=== PATIENT | female | born 1955 | race Caucasian/White ===

== ENCOUNTER 2016-06-14 17:05 | Emergency (ER) | payer MEDICARE, MEDICAID ==
[2016-06-14] MEDS ORDERED: POVIDONE IODINE 10 % 15 ML UD TOP ONE (18:02)
[2016-06-14] MEDS ORDERED: LIDOCAINE 1% 10 ML VIAL INJ ONE ×2 (18:03→18:22)
[2016-06-14] MEDS ORDERED: CHLORHEXIDINE GLUCONATE 4 % 15 ML UD TOP ONE (18:18)
[2016-06-14] MEDS ORDERED: NEOMYCIN-BACITRACIN-POLYMYXIN 0.9 GM UD TOP ONE (18:40)
--- NOTE | 2016-06-14 19:01 | ED.PDOC ---
History of Present Illness - General Chief Complaint: Laceration Stated Complaint: leg laceration Time Seen by Provider: 06/14/16 18:59 Source: patient Exam Limitations: no limitations - History of Present Illness Initial Comments: PT REPORTS SHE WAS USING HER WHEELCHAIR AND CAME TOO CLOSE TO THE BED AND CUT HER RIGHT LEG. Timing/Duration: just prior to arrival Severity: moderate Location: extremities Improving Factors: immobilization Worsening Factors: movement Allergies/Adverse Reactions: Allergies Codeine Allergy (Verified 06/14/16 17:13) Sulfa Drugs Allergy (Verified 06/14/16 17:13) states she thinks they have given sulfa drugs to her and she had no reaction TAPE Allergy (Uncoded 06/14/16 17:13) Home Medications: Ambulatory Orders Acetaminophen [Tylenol] 650 mg PO Q4-6H PRN 04/03/13 Aluminum & Magnesium Hydroxide [Maalox] 30 ml PO Q4-6H PRN 04/03/13 Bisacodyl Suppository 10Mg [Dulcolax Suppository 10mg] 10 mg [place] DAILY PRN Calcium Polycarbophil [Fibercon] 635 mg PO DAILY 04/03/13 Diphenhydramine HCl [Benadryl] 25 mg PO Q6H PRN 04/03/13 Docusate Sodium [Colace] 100 mg PO BID 04/03/13 Duloxetine HCl [Cymbalta] 60 mg PO BID 04/03/13 Magnesium Hydroxide [Milk Of Magnesia] 30 ml PO DAILY 04/03/13 Ondansetron Tab [Zofran Tab] 4 mg PO TID PRN 04/03/13 Pantoprazole Sodium 40 mg PO DAILY 04/03/13 Potassium Chloride Tab [K-Dur] 20 meq PO QID 04/03/13 Rosuvastatin Calcium [Crestor] 20 mg PO DAILY 04/03/13 Spironolactone [Aldactone] 25 mg PO BID 04/03/13 Ipratropium/Albuterol [Duoneb] 3 ml INH QID #0 vial 04/07/13 Polyethylene Glycol 3350 [Miralax] 17 gm PO BID #0 04/07/13 Albuterol Sulfate Nebs [Proventil Nebs] 2.5 mg INH Q6H PRN 10/20/13 Guaifenesin [Guaifenesin ER] 600 mg PO BID PRN 10/20/13 Insulin Detemir [Levemir Flexpen] 30 unit SC BID 10/20/13 Nystatin Powder 15 gm TOP BID 10/20/13 Bifidobacterium Infantis [Align] 4 mg PO QID #0 cap 10/23/13 Ferrous Gluconate [Fergon] 325 mg PO BIDFD #0 tab 10/23/13 HYDROcodone 7.5MG/APAP 325MG [[place] 7.5/325] 1 ea PO Q4H PRN #0 tab 10/23/13 fentaNYL PATCH 75 MCG/HR [Duragesic Patch 75 MCG/HR] 1 ea TD Q72H #0 patch 10/23 Ciprofloxacin HCl [Cipro] 250 mg PO BID #20 tab 02/04/14 Cefdinir 300 mg PO BID #42 cap 12/25/14 Furosemide [Lasix] 20 mg PO 0900,1200 #60 tab 12/25/14 Trazodone HCl 150 mg PO BEDTIME #30 tab 12/25/14 Loperamide HCl 2 mg PO PRN #20 cap 11/02/15 Nitrofurantoin Monohyd Macro [Nitrofurantoin Monohydrat] 100 mg PO BID #14 cap 11/02/15 Amoxicillin & Pot Clavulanate [Augmentin] 875 mg PO BID #20 tab 06/14/16 Review of Systems - Review of Systems Constitutional: Denies: chills, fever Musculoskeletal: Denies: joint pain, joint swelling, muscle pain Skin: States: see HPI. Denies: change in color, dryness Neurological: Denies: numbness, paresthesia Past Medical History (General) - Patient Medical History Hx Seizures: No Hx Stroke: No Hx Dementia: No Hx Asthma: No Hx of COPD: No Hx Cardiac Disorders: Yes Hx Congestive Heart Failure: No Hx Pacemaker: No Hx Hypertension: Yes Hx Thyroid Disease: No Hx Diabetes: Yes Hx Gastroesophageal Reflux: Yes Hx Renal Disease: No Hx Cancer: No Hx of HIV: No Hx Hepatitis C: No Hx MRSA: Yes MRSA Source:: Wound Surgical History: cholecystectomy - Vaccination History Hx Tetanus, Diphtheria Vaccination: No Hx Influenza Vaccination: Yes Hx Pneumococcal Vaccination: Yes - Social History Hx Tobacco Use: No Hx Alcohol Use: No Hx Substance Use: No Hx Substance Use Treatment: No Hx Depression: No Hx Physical Abuse: No Hx Emotional Abuse: No - Activities of Daily Living Custodial/Assisted Living (if applicable):: [facility] (if applicable):: None - Female History Patient is a Female of Child Bearing Age (10 -59 yrs old): No Patient : No Family Medical History - Family History Mother Family History: Unknown Living Status: Hx Family Asthma: No Hx Family Congestive Heart Failure: No - pt is not certain Hx Family Hypertension: Yes Hx Family Stroke: No Hx Cardiac Disease: Yes - [place] with bypass surgery Hx Family Diabetes: No Hx Family Cancer: No Physical Exam - Physical Exam General Appearance: No apparent distress, Obese Extremity: other - 14CM WISH BONE SHAPED LACERATION TO THE DISTAL LATERAL ASPECT OF THE RIGHT CALF, MODERATE TTP Neurologic: alert, normal mood/affect, oriented x 3 Skin Exam: warm/dry, normal color Skin Problem Location: lower extremities Procedures - Laceration/Wound Repair Right Lateral Distal Calf Wound Length (cm): 14 Wound's Depth, Shape: superficial, flap Wound Explored: no foreign body removed Irrigated w/ Saline (cc's): 250 Betadine Prep?: Yes Anesthesia: 1% Lidocaine Volume Anesthetic (cc's): 20 Suture Size/Type: 4:0, nylon Number of Sutures: 3 - SURGICAL HANSA USED Layer Closure?: No Sterile Dressing Applied?: Yes Departure - Departure Clinical Impression: Laceration Time of Disposition: 19:06 Disposition: Discharge to SNF Condition: Good Departure Forms: ED Discharge - Pt. Copy, Patient Portal Self Enrollment Instructions: DI for Laceration Repair Prescriptions: Amoxicillin & Pot Clavulanate [Augmentin] 875 mg PO BID #20 tab Home Medications: Ambulatory Orders Acetaminophen [Tylenol] 650 mg PO Q4-6H PRN 04/03/13 Aluminum & Magnesium Hydroxide [Maalox] 30 ml PO Q4-6H PRN 04/03/13 Bisacodyl Suppository 10Mg [Dulcolax Suppository 10mg] 10 mg [place] DAILY PRN Calcium Polycarbophil [Fibercon] 635 mg PO DAILY 04/03/13 Diphenhydramine HCl [Benadryl] 25 mg PO Q6H PRN 04/03/13 Docusate Sodium [Colace] 100 mg PO BID 04/03/13 Duloxetine HCl [Cymbalta] 60 mg PO BID 01/30/14 Magnesium Hydroxide [Milk Of Magnesia] 30 ml PO DAILY 04/03/13 Ondansetron Tab [Zofran Tab] 4 mg PO TID PRN 04/03/13 Pantoprazole Sodium 40 mg PO DAILY 04/03/13 Potassium Chloride Tab [K-Dur] 20 meq PO QID 04/03/13 Rosuvastatin Calcium [Crestor] 20 mg PO DAILY 04/03/13 Spironolactone [Aldactone] 25 mg PO BID 04/03/13 Ipratropium/Albuterol [Duoneb] 3 ml INH QID #0 vial 04/07/13 Polyethylene Glycol 3350 [Miralax] 17 gm PO BID #0 04/07/13 Albuterol Sulfate Nebs [Proventil Nebs] 2.5 mg INH Q6H PRN 10/20/13 Guaifenesin [Guaifenesin ER] 600 mg PO BID PRN 10/20/13 Insulin Detemir [Levemir Flexpen] 30 unit SC BID 10/20/13 Nystatin Powder 15 gm TOP BID 10/20/13 Bifidobacterium Infantis [Align] 4 mg PO QID #0 cap 10/23/13 Ferrous Gluconate [Fergon] 325 mg PO BIDFD #0 tab 10/23/13 HYDROcodone 7.5MG/APAP 325MG [[place] 7.5/325] 1 ea PO Q4H PRN #0 tab 10/23/13 fentaNYL PATCH 75 MCG/HR [Duragesic Patch 75 MCG/HR] 1 ea TD Q72H #0 patch 10/23 Ciprofloxacin HCl [Cipro] 250 mg PO BID #20 tab 02/04/14 Cefdinir 300 mg PO BID #42 cap 12/25/14 Furosemide [Lasix] 20 mg PO 0900,1200 #60 tab 12/25/14 Trazodone HCl 150 mg PO BEDTIME #30 tab 12/25/14 Loperamide HCl 2 mg PO PRN #20 cap 11/02/15 Nitrofurantoin Monohyd Macro [Nitrofurantoin Monohydrat] 100 mg PO BID #14 cap 11/02/15 Amoxicillin & Pot Clavulanate [Augmentin] 875 mg PO BID #20 tab 06/14/16 Additional Instructions: SUTURE/STAPLE REMOVAL IN 10 DAYS. TAKE ALL ANTIBIOTICS DIRECTED.
[2016-06-14] MEDS ORDERED: ceFAZolin SODIUM 1 GM VIAL IM ONE (19:09)
[2016-06-14 19:37] VITALS: BP 145/91; TEMP 98.5; O2SAT 90
== END 2016-06-14 19:37 ==
LOC: ER 17:05
DX: S81.811A Laceration without foreign body, right lower leg, initial encounter (principal); I10 Essential (primary) hypertension; E11.9 Type 2 diabetes mellitus without complications; K21.9 Gastro-esophageal reflux disease without esophagitis; Z88.6 Allergy status to analgesic agent; Z91.048 Other nonmedicinal substance allergy status; Z88.2 Allergy status to sulfonamides; Z79.899 Other long term (current) drug therapy; Z86.14 Personal history of Methicillin resistant Staphylococcus aureus infection; Z79.4 Long term (current) use of insulin; W22.03XA Walked into furniture, initial encounter; W45.8XXA Other foreign body or object entering through skin, initial encounter; Y92.129 Unspecified place in nursing home as the place of occurrence of the external cause

== ENCOUNTER → 2016-07-10 | Outpatient (CLI) | payer MEDICARE, MEDICAID | END | disposition home or self-care (01) | LOC: GOCC 12:04 | PROVIDERS: ATTEND Internal Medicine | DX: R30.0 Dysuria (principal) ==

== ENCOUNTER → 2016-08-03 | Outpatient (CLI) | payer MEDICARE, MEDICAID | END | disposition home or self-care (01) | LOC: GOCC 09:40 | PROVIDERS: ATTEND Internal Medicine | DX: E11.9 Type 2 diabetes mellitus without complications (principal); R30.0 Dysuria ==

== ENCOUNTER → 2018-05-17 | Outpatient (CLI) | payer MEDICARE, MEDICAID | LOC: GOCC 19:08 | PROVIDERS: ATTEND Internal Medicine | DX: R39.9 Unspecified symptoms and signs involving the genitourinary system (principal) ==

== ENCOUNTER → 2018-06-05 | Outpatient (CLI) | payer MEDICARE, MEDICAID | LOC: GOCC 16:57 | PROVIDERS: ATTEND Nurse Practitioner Pediatrics | DX: N39.0 Urinary tract infection, site not specified (principal) ==

== ENCOUNTER → 2018-10-18 | Outpatient (CLI) | payer MEDICARE, MEDICAID | LOC: LAB.NP 07:05 | PROVIDERS: ATTEND General Practice | DX: R60.0 Localized edema (principal) ==

== ENCOUNTER → 2018-11-01 | Outpatient (CLI) | payer MEDICARE, MEDICAID | LOC: RAD 08:05 | PROVIDERS: ATTEND Orthopaedic Surgery | DX: M19.011 Primary osteoarthritis, right shoulder (principal) ==

== ENCOUNTER → 2018-11-12 | Outpatient (CLI) | payer MEDICARE, MEDICAID ==
--- NOTE | 2018-11-12 16:57 | CT ---
EXAM DESCRIPTION: Upper Extremity CLINICAL HISTORY: 62 years Female, MASS STUDY TYPE/TECHNIQUE: CT UPPER EXTREMITY WITHOUT IV CONTRAST This exam was performed according to our departmental dose-optimization program, which includes automated exposure control, adjustment of the mA and/or kV according to patient size and/or use of iterative reconstruction technique. COMPARISON: Right shoulder radiographs FINDINGS: Mild acromioclavicular osteoarthritis. Moderate glenohumeral osteoarthritis. No fracture identified. Elbow alignment is maintained. No mass. No fluid collection. No adenopathy. There is minimal skin soft tissue thickening overlying the elbow joint dorsal to the olecranon. IMPRESSION: 1. No mass, fluid collection or adenopathy identified. 2. Minimal soft tissue thickening dorsal to the olecranon, recommend correlation with physical examination. Electronically signed by: Chevy Roa MD 11/12/2018 4:55 PM CDT
== END ==
LOC: MRI 09:00
PROVIDERS: ATTEND Orthopaedic Surgery
DX: R22.31 Localized swelling, mass and lump, right upper limb (principal)

== ENCOUNTER 2019-04-17 18:00 | Emergency (ER) | payer MEDICARE, MEDICAID ==
--- NOTE | 2019-04-17 18:30 | ED.PDOC ---
History of Present Illness - General Chief Complaint: Dental/Mouth Stated Complaint: bleeding from tooth pulled out today Time Seen by Provider: 04/17/19 18:24 Source: patient, RN notes reviewed, Vital Signs reviewed, EMS notes reviewed Exam Limitations: no limitations - History of Present Illness Initial Comments: 63-year-old white female who presents from the long-term with complaints of bleeding at the site of a tooth extraction that was performed today. States that after the tooth was extracted it continued to bleed and they were unable to control it at the long-term. Patient denies being on blood thinners. Patient denies any headaches, dizziness, nausea, vomiting, diarrhea, chest pain or shortness of breath. Throbbing ache there is mild intensity at the site of the tooth extraction. Nothing seems to make it better or worse. The pain is constant. Timing/Duration: abrupt Severity: mild EENT Location: dental Prearrival Treatment: no prearrival treatment Improving Factors: nothing Worsening Factors: nothing Associated Symptoms: drooling, tooth pain Allergies/Adverse Reactions: Allergies Codeine Allergy (Verified 04/17/19 18:25) Sulfa Drugs Allergy (Verified 04/17/19 18:25) states she thinks they have given sulfa drugs to her and she had no reaction TAPE Allergy (Uncoded 04/17/19 18:25) Home Medications: Ambulatory Orders Acetaminophen [Tylenol] 650 mg PO Q4-6H PRN 04/03/13 Aluminum & Magnesium Hydroxide [Maalox] 30 ml PO Q4-6H PRN 04/03/13 Bisacodyl Suppository 10Mg [Dulcolax Suppository 10mg] 10 mg [place] DAILY PRN 04/03/13 Calcium Polycarbophil [Fibercon] 635 mg PO DAILY 04/03/13 Diphenhydramine HCl [Benadryl] 25 mg PO Q6H PRN 04/03/13 Docusate Sodium [Colace] 100 mg PO BID 04/03/13 Duloxetine HCl [Cymbalta] 60 mg PO BID 04/03/13 Magnesium Hydroxide [Milk Of Magnesia] 30 ml PO DAILY 04/03/13 Ondansetron Tab [Zofran Tab] 4 mg PO TID PRN 04/03/13 Pantoprazole Sodium 40 mg PO DAILY 04/03/13 Potassium Chloride Tab [K-Dur] 20 meq PO QID 04/03/13 Rosuvastatin Calcium [Crestor] 20 mg PO DAILY 04/03/13 Spironolactone [Aldactone] 25 mg PO BID 04/03/13 Ipratropium/Albuterol [Duoneb] 3 ml INH QID #0 vial 04/07/13 Polyethylene Glycol 3350 [Miralax] 17 gm PO BID #0 04/07/13 Albuterol Sulfate Nebs [Proventil Nebs] 2.5 mg INH Q6H PRN 10/20/13 Guaifenesin [Guaifenesin ER] 600 mg PO BID PRN 10/20/13 Insulin Detemir [Levemir Flexpen] 30 unit SC BID 10/20/13 Nystatin Powder 15 gm TOP BID 10/20/13 Bifidobacterium Infantis [Align] 4 mg PO QID #0 cap 10/23/13 Ferrous Gluconate [Fergon] 325 mg PO BIDFD #0 tab 10/23/13 HYDROcodone 7.5MG/APAP 325MG [[place] 7.5/325] 1 ea PO Q4H PRN #0 tab 10/23/13 fentaNYL PATCH 75 MCG/HR [Duragesic Patch 75 MCG/HR] 1 ea TD Q72H #0 patch 10/23/13 Ciprofloxacin HCl [Cipro] 250 mg PO BID #20 tab 02/04/14 Cefdinir 300 mg PO BID #42 cap 12/25/14 Furosemide [Lasix] 20 mg PO 0900,1200 #60 tab 12/25/14 Trazodone HCl 150 mg PO BEDTIME #30 tab 12/25/14 Loperamide HCl 2 mg PO PRN #20 cap 11/02/15 Nitrofurantoin Monohyd Macro [Nitrofurantoin Monohydrat] 100 mg PO BID #14 cap 11/02/15 Amoxicillin & Pot Clavulanate [Augmentin] 875 mg PO BID #20 tab 06/14/16 Clindamycin HCl 300 mg PO QID #20 cap 04/17/19 Review of Systems - Review of Systems Constitutional: States: no symptoms reported, see HPI. Denies: chills, fever, malaise EENTM: States: see HPI, mouth pain Respiratory: States: no symptoms reported. Denies: cough, short of breath, wheezing Cardiology: States: no symptoms reported. Denies: chest pain, palpitations, syncope Gastrointestinal/Abdominal: States: no symptoms reported. Denies: abdominal pain, diarrhea, nausea, vomiting Genitourinary: States: no symptoms reported. Denies: dysuria, frequency Musculoskeletal: States: no symptoms reported. Denies: joint pain, joint swelling, neck pain Skin: States: no symptoms reported. Denies: change in color, rash Neurological: States: no symptoms reported. Denies: numbness, paresthesia, seizure Endocrine: States: no symptoms reported. Denies: flushing, intolerance to cold, intolerance to heat Hematologic/Lymphatic: States: no symptoms reported, see HPI, easy bleeding. Denies: anemia, blood clots, easy bruising All other Systems: Reviewed and Negative Past Medical History (General) - Patient Medical History Hx Seizures: No Hx Stroke: No Hx Dementia: No Hx Asthma: No Hx of COPD: No Hx Cardiac Disorders: Yes Hx Congestive Heart Failure: No Hx Pacemaker: No Hx Hypertension: Yes Hx Thyroid Disease: No Hx Diabetes: Yes Hx Gastroesophageal Reflux: Yes Hx Renal Disease: No Hx Cancer: No Hx of HIV: No Hx Hepatitis C: No Hx MRSA: Yes MRSA Source:: Wound - Vaccination History Hx Tetanus, Diphtheria Vaccination: No Hx Influenza Vaccination: Yes Hx Pneumococcal Vaccination: Yes - Social History Hx Tobacco Use: No Hx Alcohol Use: No Hx Substance Use: No Hx Substance Use Treatment: No Hx Depression: No Hx Physical Abuse: No Hx Emotional Abuse: No - Activities of Daily Living Alf/Assisted Living (if applicable):: [facility] - Female History Patient : No - Triage Comment ED Triage Comment: pt voices having tooth pulled today and dental crew unable to get bleeding to stop since 1400. pt voices she has held pressure for hours today. Family Medical History - Family History Mother Family History: Unknown Living Status: Hx Family Asthma: No Hx Family Congestive Heart Failure: No - pt is not certain Hx Family Hypertension: Yes Hx Family Stroke: No Hx Cardiac Disease: Yes - [place] with bypass surgery Hx Family Diabetes: No Hx Family Cancer: No Physical Exam - Physical Exam General Appearance: Alert, Anxious, Well Developed, Well Hydrated, Well Nourished Eye Exam: bilateral normal Ear Exam: bilateral ear: auricle normal Nasal Exam: normal inspection Throat Exam: dental tenderness, other - Bleeding from the tooth extraction at tooth #26. Neck: non-tender, full range of motion, supple, normal inspection, trachea midline Cardiovascular/Respiratory: no M/R/G, normal peripheral pulses, no respiratory distress - Patient is hypoxic on room air but is normally on oxygen at the long-term. Patient sats came up to 96% on 2 L nasal cannula., tachycardia Abdominal Exam: non-tender, other - Morbidly obese and distended. 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 04/17/19 19:29 Patient's bleeding has resolved after she was placed at the base of the tooth extraction. Plan discharge back to the long-term at this time. I will start the patient on clindamycin x1. I have discussed the plan of care with the patient and she voices understanding and agreement. Hari Tracey M.D. #[id number] Procedures - Laceration/Wound Repair Right Lower Jaw Wound Length (cm): 0.5 Wound's Depth, Shape: irregular, contused tissue Wound Explored: clean - Is secondary to a tooth extraction and there is clot material at the base of the socket. Betadine Prep?: No Anesthesia: Lidocaine w/ Epi Volume Anesthetic (cc's): 4 Wound Debrided: No debridement of the wound. Wound Repaired With: sutures Suture Size/Type: 4:0, fast absorbing gut Number of Sutures: 3 Layer Closure?: No Sterile Dressing Applied?: No Splint Applied?: No Sling Applied?: No Departure - Departure Clinical Impression: S/P tooth extraction Dental injury Qualifiers: Encounter type: initial encounter Qualified Code(s): S09.93XA - Unspecified injury of face, initial encounter Dental trauma Qualifiers: Encounter type: initial encounter Qualified Code(s): S09.93XA - Unspecified injury of face, initial encounter Time of Disposition: 19:45 Disposition: Discharge to Home or Self Care Condition: Good Departure Forms: ED Discharge - Pt. Copy, Patient Portal Self Enrollment Instructions: DI for Dental Pain, DI for Mouth Lesions Referrals: CINDY GAN [Primary Care Provider] - 1-5 Days Prescriptions: Clindamycin HCl 300 mg PO QID #20 cap Home Medications: Ambulatory Orders Acetaminophen [Tylenol] 650 mg PO Q4-6H PRN 04/03/13 Aluminum & Magnesium Hydroxide [Maalox] 30 ml PO Q4-6H PRN 04/03/13 Bisacodyl Suppository 10Mg [Dulcolax Suppository 10mg] 10 mg [place] DAILY PRN 04/03/13 Calcium Polycarbophil [Fibercon] 635 mg PO DAILY 04/03/13 Diphenhydramine HCl [Benadryl] 25 mg PO Q6H PRN 04/03/13 Docusate Sodium [Colace] 100 mg PO BID 04/03/13 Duloxetine HCl [Cymbalta] 60 mg PO BID 04/03/13 Magnesium Hydroxide [Milk Of Magnesia] 30 ml PO DAILY 04/03/13 Ondansetron Tab [Zofran Tab] 4 mg PO TID PRN 04/03/13 Pantoprazole Sodium 40 mg PO DAILY 04/03/13 Potassium Chloride Tab [K-Dur] 20 meq PO QID 04/03/13 Rosuvastatin Calcium [Crestor] 20 mg PO DAILY 04/03/13 Spironolactone [Aldactone] 25 mg PO BID 04/03/13 Ipratropium/Albuterol [Duoneb] 3 ml INH QID #0 vial 04/07/13 Polyethylene Glycol 3350 [Miralax] 17 gm PO BID #0 04/07/13 Albuterol Sulfate Nebs [Proventil Nebs] 2.5 mg INH Q6H PRN 10/20/13 Guaifenesin [Guaifenesin ER] 600 mg PO BID PRN 10/20/13 Insulin Detemir [Levemir Flexpen] 30 unit SC BID 10/20/13 Nystatin Powder 15 gm TOP BID 10/20/13 Bifidobacterium Infantis [Align] 4 mg PO QID #0 cap 10/23/13 Ferrous Gluconate [Fergon] 325 mg PO BIDFD #0 tab 10/23/13 HYDROcodone 7.5MG/APAP 325MG [[place] 7.5/325] 1 ea PO Q4H PRN #0 tab 10/23/13 fentaNYL PATCH 75 MCG/HR [Duragesic Patch 75 MCG/HR] 1 ea TD Q72H #0 patch 10/23/13 Ciprofloxacin HCl [Cipro] 250 mg PO BID #20 tab 02/04/14 Cefdinir 300 mg PO BID #42 cap 12/25/14 Furosemide [Lasix] 20 mg PO 0900,1200 #60 tab 12/25/14 Trazodone HCl 150 mg PO BEDTIME #30 tab 12/25/14 Loperamide HCl 2 mg PO PRN #20 cap 11/02/15 Nitrofurantoin Monohyd Macro [Nitrofurantoin Monohydrat] 100 mg PO BID #14 cap 11/02/15 Amoxicillin & Pot Clavulanate [Augmentin] 875 mg PO BID #20 tab 06/14/16 Clindamycin HCl 300 mg PO QID #20 cap 04/17/19
[2019-04-17] MEDS ORDERED: LIDOCAINE 1% 10 ML VIAL INJ ONE (18:56)
[2019-04-17] MEDS ORDERED: LIDOCAINE 1% W/ EPINEPHRINE 20 ML VIAL INJ ONE (18:57)
[2019-04-17 19:23] VITALS: O2SAT 95
[2019-04-17] MEDS: CLINDAMYCIN PHOSPHATE 150 MG/ML VIAL IM ONE (20:17)
[2019-04-17 20:57] VITALS: BP 134/89; TEMP 97.9
== END 2019-04-17 20:45 | disposition home or self-care (01) ==
LOC: ER 18:00
DX: K91.840 Postprocedural hemorrhage of a digestive system organ or structure following a digestive system procedure (principal); K08.109 Complete loss of teeth, unspecified cause, unspecified class; I51.9 Heart disease, unspecified; I10 Essential (primary) hypertension; E11.9 Type 2 diabetes mellitus without complications; K21.9 Gastro-esophageal reflux disease without esophagitis; Y84.8 Other medical procedures as the cause of abnormal reaction of the patient, or of later complication, without mention of misadventure at the time of the procedure; Z79.899 Other long term (current) drug therapy; Z88.5 Allergy status to narcotic agent; Z88.2 Allergy status to sulfonamides

== ENCOUNTER 2019-09-17 03:19 | Emergency (ER) | payer MEDICARE, MEDICAID ==
[2019-09-17] MEDS ORDERED: SODIUM CHLORIDE 0.9% (FLUSH) 10 ML SYG IV PRN (03:21)
[2019-09-17] MEDS ORDERED: SODIUM CHLORIDE 0.9% 1000ML 1,000 ML IVS ONE (03:22)
--- NOTE | 2019-09-17 03:28 | ED.PDOC ---
History of Present Illness - General Time Seen by Provider: 09/17/19 03:21 Source: patient, EMS, senior care records - History of Present Illness Initial Comments: 63 yo female with PMH of morbid obesity, HTN, DM2, chronic hypoxic respiratory failure on continuous home O2 via [place] who is bib EMS from [facility] for cc of shortness of breath and low O2 sats. Pt is poor historian. She states she has been short of breath for 5 weeks but worsened in past few days and this evening - "felt like I couldn't catch my breath." She was given a nebulized breathing treatment at 10:30 pm with good brief relief. However, she reportedly worsened again just [employer] and had O2 sats in low 80s. She was put on 6 L [place] O2 at [place] with improvement to 86% SpO2 upon EMS arrival and then to NRB O2 facemask en route here with sats >95%. Pt reporting now marked improvement in dyspnea. Also reports intermittent cough productive for yellow sputum, sore throat, and 2-3 episodes of watery diarrhea today. Denies any fevers, chills, chest pain, abd pain, n/v, urinary sx's, headaches, body aches. COVID-19 is currently spreading through the [place]. Allergies/Adverse Reactions: Allergies Codeine Allergy (Verified 04/17/19 18:25) Sulfa Drugs Allergy (Verified 04/17/19 18:25) states she thinks they have given sulfa drugs to her and she had no reaction TAPE Allergy (Uncoded 04/17/19 18:25) Home Medications: Ambulatory Orders Acetaminophen [Tylenol] 650 mg PO Q4-6H PRN 04/03/13 Aluminum & Magnesium Hydroxide [Maalox] 30 ml PO Q4-6H PRN 04/03/13 Bisacodyl Suppository 10Mg [Dulcolax Suppository 10mg] 10 mg [place] DAILY PRN 04/03/13 Calcium Polycarbophil [Fibercon] 635 mg PO DAILY 04/03/13 Diphenhydramine HCl [Benadryl] 25 mg PO Q6H PRN 04/03/13 Docusate Sodium [Colace] 100 mg PO BID 04/03/13 Duloxetine HCl [Cymbalta] 60 mg PO BID 04/03/13 Magnesium Hydroxide [Milk Of Magnesia] 30 ml PO DAILY 04/03/13 Ondansetron Tab [Zofran Tab] 4 mg PO TID PRN 04/03/13 Pantoprazole Sodium 40 mg PO DAILY 04/03/13 Potassium Chloride Tab [K-Dur] 20 meq PO QID 04/03/13 Rosuvastatin Calcium [Crestor] 20 mg PO DAILY 04/03/13 Spironolactone [Aldactone] 25 mg PO BID 04/03/13 Ipratropium/Albuterol [Duoneb] 3 ml INH QID #0 vial 04/07/13 Polyethylene Glycol 3350 [Miralax] 17 gm PO BID #0 04/07/13 Albuterol Sulfate Nebs [Proventil Nebs] 2.5 mg INH Q6H PRN 10/20/13 Guaifenesin [Guaifenesin ER] 600 mg PO BID PRN 10/20/13 Insulin Detemir [Levemir Flexpen] 30 unit SC BID 10/20/13 Nystatin Powder 15 gm TOP BID 10/20/13 Bifidobacterium Infantis [Align] 4 mg PO QID #0 cap 10/23/13 Ferrous Gluconate [Fergon] 325 mg PO BIDFD #0 tab 10/23/13 HYDROcodone 7.5MG/APAP 325MG [Deville 7.5/325] 1 ea PO Q4H PRN #0 tab 10/23/13 fentaNYL PATCH 75 MCG/HR [Duragesic Patch 75 MCG/HR] 1 ea TD Q72H #0 patch 10/23/13 Ciprofloxacin HCl [Cipro] 250 mg PO BID #20 tab 02/04/14 Cefdinir 300 mg PO BID #42 cap 12/25/14 Furosemide [Lasix] 20 mg PO 0900,1200 #60 tab 12/25/14 Trazodone HCl 150 mg PO BEDTIME #30 tab 12/25/14 Loperamide HCl 2 mg PO PRN #20 cap 11/02/15 Nitrofurantoin Monohyd Macro [Nitrofurantoin Monohydrat] 100 mg PO BID #14 cap 11/02/15 Amoxicillin & Pot Clavulanate [Augmentin] 875 mg PO BID #20 tab 06/14/16 Clindamycin HCl 300 mg PO QID #20 cap 04/17/19 Review of Systems - Review of Systems Review of Systems: 09/17/19 03:28 as per HPI All other Systems: Reviewed and Negative Past Medical History (General) - Patient Medical History Hx Seizures: No Hx Stroke: No Hx Dementia: No Hx Asthma: No Hx of COPD: No Hx Cardiac Disorders: Yes Hx Congestive Heart Failure: No Hx Pacemaker: No Hx Hypertension: Yes Hx Thyroid Disease: No Hx Diabetes: Yes Hx Gastroesophageal Reflux: Yes Hx Renal Disease: No Hx Cancer: No Hx of HIV: No Hx Hepatitis C: No Hx MRSA: Yes MRSA Source:: Wound - Vaccination History Hx Tetanus, Diphtheria Vaccination: No Hx Influenza Vaccination: Yes Hx Pneumococcal Vaccination: Yes - Social History Hx Tobacco Use: No Hx Alcohol Use: No Hx Substance Use: No Hx Substance Use Treatment: No Hx Depression: No Hx Physical Abuse: No Hx Emotional Abuse: No - Female History Patient : No Family Medical History - Family History Mother Family History: Unknown Living Status: Hx Family Asthma: No Hx Family Congestive Heart Failure: No - pt is not certain Hx Family Hypertension: Yes Hx Family Stroke: No Hx Cardiac Disease: Yes - [facility] with bypass surgery Hx Family Diabetes: No Hx Family Cancer: No Physical Exam - Physical Exam General Appearance: Alert, Comfortable, No apparent distress, Obese Eye Exam: bilateral normal Ears, Nose, Throat: hearing grossly normal, other - dry appearing oral mucosa, slightly erythematous oropharynx Neck: non-tender, full range of motion, supple, normal inspection Respiratory: chest non-tender, other - diminished throughout with mild biphasic wheezing noted Cardiovascular/Chest: normal peripheral pulses, no gallop, no JVD, no murmur, irregularly irregular Peripheral Pulses: radial,right: 2+, radial,left: 2+ Gastrointestinal/Abdominal: normal bowel sounds, non tender, soft, no organomegaly Extremity: non-tender, normal inspection, no calf tenderness Neurologic: stripper and taper II-XII nml as tested, no motor/sensory deficits, alert, normal mood/affect, oriented x 3 Skin Exam: normal color, warm/dry Progress - Progress Progress: 09/17/19 03:30 Dyspnea, hypoxia -consider COVID-19, PNA, CHF, ACS, PE, other -obtain cardiac work-up, bloodwork, Resp panel -continue NRB O2 facemask 09/17/19 04:07 -EKG on arrival revealed A-fib with RVR, HR 140. Giving 1 L NS bolus and will monitor. If HR remains elevated, will give diltiazem or metoprolol for rate control. 09/17/19 07:01 -Pt's HR has improved to 90s and now in NSR on monitor following 1 L NS bolus and diltiazem 10 mg IV x1. Maintaining >92% SpO2 on NRB O2 facemask, resting comfortably in bed. Intermittently febrile, Tmax 103.4 F here. -Respiratory panel finally resulted - pt is positive for COVID-19. Other pertinent labs include Strep+, UA c/w UTI, WBC 7,800 with 80% segs & no bands, lactate 1.2. Trop 0.04, d dimer elevated to 750. Serum glucose 264. CTA chest obtained which revealed no evidence of PE but revealed BL interstial opacities c/w BL PNA. -Begun on IV Abx for empiric coverage of PNA, strep, UTI with Vancomycin 1500 mg IV and Rocephin 1 g IV. -As no further COVID beds available and pt is high risk for need for ICU which is unavailable here, will need to transfer to higher LOC. Spoke with ED physician at [facility] who accepts the patient for ED to ED transfer, will go via ground EMS. Ryan Chirinos MD Billing #[id number] 09/17/19 03:21 IV Care:Saline Lock per Protoc QSHIFT Telemetry .ONCE Sodium Chloride 0.9% (Flush) [Saline Flush Syringe] 10 ml IV PRN PRN 09/17/19 03:30 EKG STAT 09/17/19 04:42 Catheter:Cabrera QSHIFT 09/17/19 04:50 URINE CULTURE W/COLONY COUNT Stat 09/17/19 06:49 1500MG ONCE ONE (ED ORDER) Vancomycin HCl Inj 1,000 mg Vancomycin HCl Inj 500 mg Sodium Chloride 0.9% 250Ml [NS 250ml] 250 ml IVPB ONCE 09/17/19 06:58 BLOOD CULTURE Stat 09/17/19 09:00 Pulse Ox Daily Laboratory Results - last 24 hr 09/17/19 09/17/19 09/17/19 03:41 03:41 03:41 WBC 7.8 RBC 5.35 Hgb 16.0 Hct 49.3 H MCV 92.1 MCH 30.0 MCHC 32.6 L RDW 14.6 H Plt Count 277 MPV 9.3 Absolute Neuts (auto) 6.30 Absolute Lymphs (auto) 1.00 Absolute Monos (auto) 0.60 Absolute Eos (auto) 0.00 Absolute Basos (auto) 0.00 Neutrophils % 80.0 H Lymphocytes % 12.3 L Monocytes % 7.4 Eosinophils % 0.0 L Basophils % 0.3 D-Dimer, Quantitative 750.0 H* Sodium 137 Potassium 4.3 Chloride 85 L Carbon Dioxide 39 H Anion Gap 17.3 BUN 17 Creatinine 0.64 BUN/Creatinine Ratio 26.6 H Random Glucose 264 H Serum Osmolality 284.6 Lactic Acid Calcium 8.6 Total Bilirubin 1.0 AST 68 H ALT 37 Alkaline Phosphatase 186 H Troponin I B-Natriuretic Peptide 98.3 Serum Total Protein 6.8 Albumin 2.8 L Globulin 4.0 H Albumin/Globulin Ratio 0.7 L Urine Color Urine Appearance Urine pH Ur Specific [place] Urine Protein Urine Glucose (UA) Urine Ketones Urine Blood Urine Nitrite Urine Bilirubin Urine Urobilinogen Ur Leukocyte Esterase Urine RBC Urine WBC Ur Epithelial Cells Amorphous Sediment Urine Bacteria Urine Mucus Group A Strep Rapid 09/17/19 09/17/19 09/17/19 03:41 03:41 04:50 WBC RBC Hgb Hct MCV MCH MCHC RDW Plt Count MPV Absolute Neuts (auto) Absolute Lymphs (auto) Absolute Monos (auto) Absolute Eos (auto) Absolute Basos (auto) Neutrophils % Lymphocytes % Monocytes % Eosinophils % Basophils % D-Dimer, Quantitative Sodium Potassium Chloride Carbon Dioxide Anion Gap BUN Creatinine BUN/Creatinine Ratio Random Glucose Serum Osmolality Lactic Acid 1.2 Calcium Total Bilirubin AST ALT Alkaline Phosphatase Troponin I 0.04 B-Natriuretic Peptide Serum Total Protein Albumin Globulin Albumin/Globulin Ratio Urine Color Yellow Urine Appearance Cloudy Urine pH 7.5 Ur Specific [place] 1.020 Urine Protein >=300 H Urine Glucose (UA) Negative Urine Ketones 15 H Urine Blood Moderate H Urine Nitrite Positive H Urine Bilirubin Small H Urine Urobilinogen 2.0 H Ur Leukocyte Esterase Trace H Urine RBC 10-20 H Urine WBC 20-30 H Ur Epithelial Cells 0 Amorphous Sediment 1+ Urine Bacteria 4+ H Urine Mucus Moderate Group A Strep Rapid 09/17/19 04:50 WBC RBC Hgb Hct MCV MCH MCHC RDW Plt Count MPV Absolute Neuts (auto) Absolute Lymphs (auto) Absolute Monos (auto) Absolute Eos (auto) Absolute Basos (auto) Neutrophils % Lymphocytes % Monocytes % Eosinophils % Basophils % D-Dimer, Quantitative Sodium Potassium Chloride Carbon Dioxide Anion Gap BUN Creatinine BUN/Creatinine Ratio Random Glucose Serum Osmolality Lactic Acid Calcium Total Bilirubin AST ALT Alkaline Phosphatase Troponin I B-Natriuretic Peptide Serum Total Protein Albumin Globulin Albumin/Globulin Ratio Urine Color Urine Appearance Urine pH Ur Specific [place] Urine Protein Urine Glucose (UA) Urine Ketones Urine Blood Urine Nitrite Urine Bilirubin Urine Urobilinogen Ur Leukocyte Esterase Urine RBC Urine WBC Ur Epithelial Cells Amorphous Sediment Urine Bacteria Urine Mucus Group A Strep Rapid Positive 09/17/19 07:10 - EKG/XRAY/CT EKG: Atrial, Fibrillation - with RVR, HR 140, no ST elevs or q waves noted, Left axis deviation, intervals normal, compared to 12/23/14 EKG a-fib appears new XRAY: chest - Cardiomegaly with moderate central pulmonary vascular congestion per my read Departure - Departure Clinical Impression: Hypoxemia, Pneumonia due to 2019 novel coronavirus, Healthcare-associated pneumonia, Acute streptococcal pharyngitis Atrial fibrillation Qualifiers: Atrial fibrillation type: paroxysmal Qualified Code(s): I48.0 - Paroxysmal atr ial fibrillation UTI (urinary tract infection) Qualifiers: Urinary tract infection type: acute cystitis Hematuria presence: without hematuria Qualified Code(s): N30.00 - Acute cystitis without hematuria Time of Disposition: 06:59 Disposition: Transfer to Hospital Condition: Poor Referrals: CINDY GAN [Primary Care Provider] - 1-2 Weeks Home Medications: Ambulatory Orders Acetaminophen [Tylenol] 650 mg PO Q4-6H PRN 04/03/13 Aluminum & Magnesium Hydroxide [Maalox] 30 ml PO Q4-6H PRN 04/03/13 Bisacodyl Suppository 10Mg [Dulcolax Suppository 10mg] 10 mg [place] DAILY PRN 04/03/13 Calcium Polycarbophil [Fibercon] 635 mg PO DAILY 04/03/13 Diphenhydramine HCl [Benadryl] 25 mg PO Q6H PRN 04/03/13 Docusate Sodium [Colace] 100 mg PO BID 04/03/13 Duloxetine HCl [Cymbalta] 60 mg PO BID 04/03/13 Magnesium Hydroxide [Milk Of Magnesia] 30 ml PO DAILY 04/03/13 Ondansetron Tab [Zofran Tab] 4 mg PO TID PRN 04/03/13 Pantoprazole Sodium 40 mg PO DAILY 04/03/13 Potassium Chloride Tab [K-Dur] 20 meq PO QID 04/03/13 Rosuvastatin Calcium [Crestor] 20 mg PO DAILY 04/03/13 Spironolactone [Aldactone] 25 mg PO BID 04/03/13 Ipratropium/Albuterol [Duoneb] 3 ml INH QID #0 vial 04/07/13 Polyethylene Glycol 3350 [Miralax] 17 gm PO BID #0 04/07/13 Albuterol Sulfate Nebs [Proventil Nebs] 2.5 mg INH Q6H PRN 10/20/13 Guaifenesin [Guaifenesin ER] 600 mg PO BID PRN 10/20/13 Insulin Detemir [Levemir Flexpen] 30 unit SC BID 10/20/13 Nystatin Powder 15 gm TOP BID 10/20/13 Bifidobacterium Infantis [Align] 4 mg PO QID #0 cap 10/23/13 Ferrous Gluconate [Fergon] 325 mg PO BIDFD #0 tab 10/23/13 HYDROcodone 7.5MG/APAP 325MG [Deville 7.5/325] 1 ea PO Q4H PRN #0 tab 10/23/13 fentaNYL PATCH 75 MCG/HR [Duragesic Patch 75 MCG/HR] 1 ea TD Q72H #0 patch 10/23/13 Ciprofloxacin HCl [Cipro] 250 mg PO BID #20 tab 02/04/14 Cefdinir 300 mg PO BID #42 cap 12/25/14 Furosemide [Lasix] 20 mg PO 0900,1200 #60 tab 12/25/14 Trazodone HCl 150 mg PO BEDTIME #30 tab 12/25/14 Loperamide HCl 2 mg PO PRN #20 cap 11/02/15 Nitrofurantoin Monohyd Macro [Nitrofurantoin Monohydrat] 100 mg PO BID #14 cap 11/02/15 Amoxicillin & Pot Clavulanate [Augmentin] 875 mg PO BID #20 tab 06/14/16 Clindamycin HCl 300 mg PO QID #20 cap 04/17/19 Transfer to Outside Facility - Transfer Information Decision to Transfer Date: 09/17/19 Decision to Transfer Time: 06:59 Reason for Transfer: specialized care not available - COVID unit, possible need for ICU Accepting Provider:: Dr. Roy Accepting Facility: [facility]
[2019-09-17] MEDS ORDERED: ACETAMINOPHEN 325 MG TAB ONE (04:38)
[2019-09-17] MEDS ORDERED: ACETAMINOPHEN 325 MG TAB PO ONE (04:47)
--- NOTE | 2019-09-17 04:57 | RAD ---
EXAM: XR Chest, 1 View CLINICAL HISTORY: The patient is 63 years old and is Female; dyspnea, hypoxia TECHNIQUE: Frontal view of the chest. COMPARISON: Chest radiograph from 09/13/2019 FINDINGS: LUNGS: There is pulmonary vascular congestion with central opacities suggesting pulmonary edema. Findings have worsened compared to the prior study. PLEURAL SPACE: No significant pleural effusion. No obvious pneumothorax. There is slight lucency at the right lung base which is favored to represent residual aerated lung. HEART: Mild enlargement of the cardiac silhouette. MEDIASTINUM: Unremarkable. BONES/JOINTS: No acute osseous findings. IMPRESSION: 1. Pulmonary vascular congestion with central opacities suggesting pulmonary edema. The differential includes multilobar pneumonia. 2. Slight lucency at the right lung base which is favored to be artifactual. However, a tiny right basilar pneumothorax cannot be completely excluded on this exam. Consider follow-up radiograph for further evaluation. Electronically signed by: Bonita Bess MD 09/17/2019 4:56 AM CDT
[2019-09-17] MEDS ORDERED: cefTRIAXone SODIUM 1 GM in SODIUM CHL 0.9% 50ML MIN-BAG+ 50 ML IVPB ONE (05:50)
--- NOTE | 2019-09-17 06:08 | CT ---
CT angiogram chest with contrast on 09/17/2019 CLINICAL INDICATION: Shortness of breath, elevated d-dimer, hypoxia TECHNIQUE: Multiple axial images are obtained throughout the chest following the administration of IV contrast. Computer generated 3D reconstructions/MIPS were performed. This exam was performed according to our departmental dose-optimization program, which includes automated exposure control, adjustment of the mA and/or kV according to patient size and/or use of iterative reconstruction technique. Total DLP is 693.43 mGy*cm. COMPARISON: None FINDINGS: There is significant elevation of the right hemidiaphragm. There is no thoracic aortic aneurysm or dissection. There is no pleural or pericardial effusion. There are partially imaged low-density areas in the liver that appear wedge-shaped and peripheral raising a question of hepatic infarcts. Visualized upper abdomen is otherwise unremarkable. There are no filling defects within the pulmonary arteries to suggest pulmonary embolus. There are bilateral predominantly airspace opacities greatest in the right upper lobe and left lower lobe consistent with bilateral pneumonia. No bony abnormality is noted. There is no thoracic adenopathy. IMPRESSION: 1. No evidence of pulmonary embolus. 2. Bilateral airspace disease consistent with bilateral pneumonia greatest in the right upper lobe and left lower lobe. 3. Partially imaged peripheral low-density areas in the liver present question of areas of hepatic infarct. Consider follow-up liver protocol CT or MRI with contrast. Electronically signed by: Dick Reddy 09/17/2019 6:07 AM CDT
[2019-09-17] MEDS ORDERED: VANCOMYCIN HCL INJ 1,000 MG, VANCOMYCIN HCL INJ 500 MG in SODIUM CHLORIDE 0.9% 250ML 25... IVPB ONE (06:49)
[2019-09-17 08:34] VITALS: BP 124/75; TEMP 99.7; O2SAT 96
== END 2019-09-17 08:33 | disposition short-term general hospital (02) ==
LOC: ER 03:19
DX: U07.1 COVID-19 (principal); N30.00 Acute cystitis without hematuria; J12.89 Other viral pneumonia; R09.02 Hypoxemia; J02.0 Streptococcal pharyngitis; E66.01 Morbid (severe) obesity due to excess calories; I10 Essential (primary) hypertension; E11.9 Type 2 diabetes mellitus without complications; I48.0 Paroxysmal atrial fibrillation; Z99.81 Dependence on supplemental oxygen
CPT/HCPCS: 36415; 71045; 71275; 80053; 81001; 83605; 83880; 84484; 85025; 85379; 87040; 87086; 87635; 87880; 93005; A4216; J0696; J3370; J7030; J7050

== ENCOUNTER → 2019-09-26 | Outpatient (CLI) | payer MEDICARE, MEDICAID | LOC: GOCC 16:38 | PROVIDERS: ATTEND Internal Medicine | DX: I10 Essential (primary) hypertension (principal); Z79.899 Other long term (current) drug therapy ==

== ENCOUNTER → 2020-02-18 | Outpatient (CLI) | payer MEDICARE, MEDICAID | LOC: GOCC 12:34 | PROVIDERS: ATTEND General Practice | DX: N39.0 Urinary tract infection, site not specified (principal) ==